=== PATIENT | female | born 1955 | race Caucasian/White ===

== ENCOUNTER 2016-08-21 06:05 | Observation (INO) | payer BC ==
[~2016-08-21] VITALS: Ht 165.1 cm; Wt 91.8 kg
[2016-08-21] MEDS ORDERED: MAGN250T3 PO (07:01)
[2016-08-21] MEDS ORDERED: ASPI81TA28 PO (07:01)
[2016-08-21] MEDS ORDERED: CHOL1000 PO (07:01)
[2016-08-21] MEDS ORDERED: ATOR-22 PO (07:01)
[2016-08-21] MEDS ORDERED: LISI-729 PO (07:01)
[2016-08-21] MEDS ORDERED: MULT-506 PO (07:01)
[2016-08-21 07:25] VITALS: BP 173/79; PULSE 52; TEMP 36.8; O2SAT 98
[2016-08-21 07:34] VITALS: BMI 32.0
[2016-08-21] MEDS ORDERED: MIDAZOLAM HCL 5 MG/ML 1 ML VIAL ONE ×2 (08:16→11:10)
[2016-08-21] MEDS ORDERED: DiphenhydrAMINE HCL 50 MG/ML VIAL ONE (08:19)
--- NOTE | 2016-08-21 08:21 | History & Physical Bridge Note ---
H&P Re-Evaluation Bridge Note: I have examined the patient, reviewed the History & Physical and in the interval since the performance of the History & Physical I have noted the following changes of clinical significance: No changes noted
--- NOTE | 2016-08-21 08:22 | Procedure Note ---
Pre-Mod Sedation Assessment General Date of Moderate Sedation: Aug 21, 2016. Vital Signs: Vital Signs Past 12 Hours Date Time Temp Pulse Resp B/P (MAP) Pulse Ox O2 Delivery O2 Flow Rate FiO2 08/21/16 07:25 36.8 52 16 173/79 98 Room Air Review Cardiovascular: regular rate, rhythm Abdomen: soft Lungs: lungs clear Airway Class: II Pre-Sedation Airway Assessment Oral Cavity: Capped Teeth Short Thick Neck: No Hx of Sleep Apnea: No Smoking Status: Never Smoker Mallampati Classification: Class II ASA Classification: Class II Procedure Planning Contraindications-for Mod Sed: None Yes Notes The planned sedation has been discussed with the patient and consent obtained. I have identified the patient, determined the appropriateness of sedation and have assessed the patient immediately prior to the procedure. All medicine(s) and interventions are by my order.
[2016-08-21] MEDS ORDERED: HEPARIN SOD (PORCINE) 1000 UNIT/ML 10 ML VIAL ONE (09:12)
[2016-08-21] MEDS ORDERED: HYDROmorphone INJ 1 MG/ML SYR ONE (09:13)
[2016-08-21] MEDS ORDERED: LIDOCAINE HCL 1% 20 ML VIAL ONE (09:33)
--- NOTE | 2016-08-21 11:41 | Procedure Note ---
Post-Mod Sedation Assessment General Date of Moderate Sedation Aug 21, 2016. Vital Signs: Vital Signs Past 12 Hours Date Time Temp Pulse Resp B/P (MAP) Pulse Ox O2 Delivery O2 Flow Rate FiO2 08/21/16 07:25 36.8 52 16 173/79 98 Room Air Review - Discharge Criteria Vital Signs Stable: Yes Alert/Oriented/Conversant: Yes Returned to Baseline Mental St: Yes Nausea Absent/Minimal: Yes Pain/Discomfort/Absent/Minimal: Yes Normal/Baseline Respirations: Yes Active Bleeding?: Yes Pt Received D/C Instructions: N/A Prescriptions Given: None Specific Proced. D/C Criteria Distal Pulses Present (Cardiac: Yes Groin site assessed-Card Cath: Yes Voided Prior To Discharge: N/A Discharged Patients Adult Escort/Transportation: N/A
--- NOTE | 2016-08-21 11:43 | Discharge Instructions ---
Discharge Instructions Date of Service Aug 21, 2016. Admission Reason for Admission: Atrial Flutter Discharge Discharge Diagnosis / Problem: ATRIAL FLUTTER Discharge Goals Goal(s): Improve function Activity Recommendations Activity Limitations: as noted below Lifting Limitations: no more than 10 pounds (DO NOT LIFT ANYTHING HEAVY OR SQUATING FOR 1 WEEK) Exercise/Sports Limitations: as tolerated May Resume Sexual Activity: after one week Shower/Bathe: tomorrow Driving or Machine Use: resume 1 day after discharge ACTIVITY RECOMMENDATIONS: It is common to feel weak and fatigue for a few days. * Do not drive or operate any motorized equipment for the next 1 day. * Limit stair usage (2 or 3 trips a day only) for the next three days. * Do not lift anything heavier than 10 pounds for the next 7 days. * Do not engage in vigorous exercise or any sports for the next five days. * You may shower the day after your procedure, but do not immerse the area for three days. Cleanse the site gently with soap and water. SPECIAL CARE INSTRUCTIONS: * You may replace the pressure dressing or band-aid the morning after the procedure. * After your procedure, it is normal to have a small bruise or small lump at the site. Examine your site daily for any change in the bruise or lump, redness, swelling, drainage or numbness. Notify your doctor if any change. BLEEDING: * If there is a small amount of bleeding at the site, lie down and apply firm pressure with a clean cloth for ten minutes. When the bleeding stops, lie quietly keeping the procedure limb straight for six hours. Notify your doctor as soon as possible. * If the bleeding does not stop after ten minutes or if there is a large amount of bleeding or spurting, call 911 immediately. Continue to lie down and hold firm pressure until help arrives. SKIN IRRITATION: * You may experience some redness and/or swelling in the area where radiation was administered. If any skin irritation occurs, please contact your family physician. FOLLOW UP VISIT: Keep any scheduled doctor appointments. . Instructions / Follow-Up Instructions / Follow-Up ACTIVITY RECOMMENDATIONS: It is common to feel weak and fatigue for a few days. * Do not drive or operate any motorized equipment for the next 1 day. * Limit stair usage (2 or 3 trips a day only) for the next three days. * Do not lift anything heavier than 10 pounds for the next three days. * Do not engage in vigorous exercise or any sports for the next five days. * You may shower the day after your procedure, but do not immerse the area for three days. Cleanse the site gently with soap and water. SPECIAL CARE INSTRUCTIONS: * You may replace the pressure dressing or band-aid the morning after the procedure. * After your procedure, it is normal to have a small bruise or small lump at the site. Examine your site daily for any change in the bruise or lump, redness, swelling, drainage or numbness. Notify your doctor if any change. BLEEDING: * If there is a small amount of bleeding at the site, lie down and apply firm pressure with a clean cloth for ten minutes. When the bleeding stops, lie quietly keeping the procedure limb straight for six hours. Notify your doctor as soon as possible. * If the bleeding does not stop after ten minutes or if there is a large amount of bleeding or spurting, call 911 immediately. Continue to lie down and hold firm pressure until help arrives. SKIN IRRITATION: * You may experience some redness and/or swelling in the area where radiation was administered. If any skin irritation occurs, please contact your family physician. FOLLOW UP VISIT: Keep any scheduled doctor appointments. Current Hospital Diet Patient's current hospital diet: Regular Diet Discharge Diet Recommended Diet: Regular Diet Procedures Procedures Performed: EPS AND ATRIAL FLUTTER ABLATION, 3D MAPPING OF RA Pending Studies Studies pending at discharge: no Medical Emergencies . Who to Call and When: Medical Emergencies: If at any time you feel your situation is an emergency, please call 911 immediately. . Non-Emergent Contact Non-Emergency issues call your: Short Order Fry Cook . . "Provider Documentation" section prepared by Gely Ibarra. . VTE Core Measure Inpt VTE Proph given/why not?: Treatment not indicated
[2016-08-21] MEDS ORDERED: ACETAMINOPHEN 325 MG TAB PO PRN (11:45)
--- NOTE | 2016-08-21 11:46 | Discharge Summary ---
Discharge Summary Date of Service Aug 21, 2016. Discharge Summary Admission Date: Discharge Date: Aug 22, 2016 Discharge Disposition: Home Principal Diagnosis: ATRIAL FLUTTER S/P ABLATION Secondary Diagnoses/Problems: HTN HLD H/O RETINAL HEMORRHAGES Procedures: EPS, ATRIAL FLUTTER ABLATION, 3D MAPPING OF RIGHT ATRIUM Medication Reconciliation Continued Medications: Aspirin (Aspirin Ec) 81 Mg Tab 81 MG PO DAILY Atorvastatin (Lipitor) 20 Mg Tab 20 MG PO DAILY, TAB Cholecalciferol (Vitamin D3) 1,000 Unit Tab 2 TAB PO DAILY for 90 Days, #180 TAB 3 Refills Lisinopril (Zestril) 5 Mg Tab 5 MG PO DAILY, TAB Magnesium (Magnesium 250 mg) 1 Tab Tab 1 TAB PO BID Multivitamin (Multivitamin) Tab 1 TAB PO DAILY, TAB Admission Information Physical Exam (per Admitting): aaox3, NAD Supple, No JVD Nrl S1/S2, no murmur CTA b/l No w/r/r soft nt/nd no edema b/l le pulses intact skin intact no focal deficits Hospital Course Pt was admitted for elective atrial flutter ablation; underwent an empiric atrial flutter ablation without any complications. Monitored overnight and discharged home in stable condition Total time spent on discharge = 30 minutes This includes examination of the patient, discharge planning, medication reconciliation, and communication with other providers. Discharge Instructions ACTIVITY RECOMMENDATIONS: It is common to feel weak and fatigue for a few days. * Do not drive or operate any motorized equipment for the next day. * Limit stair usage (2 or 3 trips a day only) for the next three days. * Do not lift anything heavier than 10 pounds for the next three days. * Do not engage in vigorous exercise or any sports for the next five days. * You may shower the day after your procedure, but do not immerse the area for three days. Cleanse the site gently with soap and water. SPECIAL CARE INSTRUCTIONS: * You may replace the pressure dressing or band-aid the morning after the procedure. * After your procedure, it is normal to have a small bruise or small lump at the site. Examine your site daily for any change in the bruise or lump, redness, swelling, drainage or numbness. Notify your doctor if any change. BLEEDING: * If there is a small amount of bleeding at the site, lie down and apply firm pressure with a clean cloth for ten minutes. When the bleeding stops, lie quietly keeping the procedure limb straight for six hours. Notify your doctor as soon as possible. * If the bleeding does not stop after ten minutes or if there is a large amount of bleeding or spurting, call 911 immediately. Continue to lie down and hold firm pressure until help arrives. SKIN IRRITATION: * You may experience some redness and/or swelling in the area where radiation was administered. If any skin irritation occurs, please contact your family physician. FOLLOW UP VISIT: Keep any scheduled doctor appointments.
--- NOTE | 2016-08-21 11:47 | [facility] Post Operative Brief Note ---
Immediate Operative Summary Operative Date Aug 21, 2016. Pre-Operative Diagnosis atrial flutter Post-Operative Diagnosis same, bidirectional block across CTI Procedure(s) Performed EPS AND ATRIAL FLUTTER ABLATION, 3D MAPPING OF RA Surgeon rowan garcia Business Travel Consultant Surgeon(s) none Estimated Blood Loss <5cc Findings see official report Fluids (cc crystalloids) 700cc Specimens none Drains none Anesthesia 5mg versed and 1mg dilaudid Complication(s) None Disposition PCU
--- NOTE | 2016-08-21 12:10 | [facility] Operative Report ---
Operative Report Operative Date Aug 21, 2016. Pre-Operative Diagnosis atrial flutter Post-Operative Diagnosis same, bidirectional block across CTI Procedure(s) Performed EPS AND ATRIAL FLUTTER ABLATION, 3D MAPPING OF RA Surgeon rowan ibarra Salesperson Recreational Vehicles Surgeon(s) none Estimated Blood Loss <5cc Findings Patient: ALPHONSE THOMPSON Admit Date: 06/13/1704/03/17 [facility] Rec: [id number] Acct ID: [id number] DATE OF OPERATION: 08/21/2016 PREOPERATIVE DIAGNOSIS: Paroxysmal atrial flutter. POSTOPERATIVE DIAGNOSIS: Same in addition to bidirectional block over the cavotricuspid isthmus. PROCEDURE: Electrophysiology study, 3D mapping of the His bundle, coronary sinus os, cavotricuspid isthmus and the IVC-RA junction along with 3d activation mapping of RA while c/s prox pacing to confirm block across the CTI, radiofrequency ablation of the cavotricuspid isthmus. SURGEON: Dr. Rowan Ibarra. CIVIL CLERK: None. ANESTHESIA: Monitored conscious sedation administered by Merry Way under my supervision; start time 08:22; end time 10:30; total of 5mg versed and 1mg dilaudid COMPLICATIONS: None. CONDITION: Stable. SPECIMENS: None. FINDINGS: See below DRAINS: None. BLOOD LOSS: Less than 5 mL URINE OUTPUT: Not applicable. FINDINGS: See below. INDICATIONS: This is a 61-year-old female with a past medical history for paroxysmal atrial flutter found on LINQ interrogations, HTN, HLD, h/o retinal hemorrhages so even though her [id number] is 2 (HTN and female) only on ASA. Given she continues to have symptomatic paroxysmal atrial flutter and unable to take anti-coagulation patient was recommend an atrial flutter ablation. CONSENT: Consent was obtained prior to the patient going into the electrophysiology lab. The patient was explained the risks, benefits and alternatives to the procedure. Risks include but not limited to sudden cardiac , cardiac arrhythmias, cerebrovascular accident, myocardial infarction, injury to the blood vessels, chamber of the heart, [place] electrical system where she would need a permanent pacemaker, bleeding, infection. The patient understood these risks and agreed to the procedure as planned. Informed consent was obtained. DESCRIPTION OF THE PROCEDURE: The patient was brought into the electrophysiology lab in a fasting state. She was connected to continuous cardiac technologist. A timeout was performed to ensure patient identity and procedure correctly. The patient was prepped and draped to bilateral groins in normal surgical standard fashion. Monitored conscious sedation was given throughout the case for the patient's comfort level under my supervision. Toney precautions were maintained throughout the procedure. 10 mL of 1% lidocaine were given in the bilateral groins for local anesthesia. Using the modified Seldinger technique, venous access was obtained in the following manner. The left femoral vein had a: 7-Pashto sheath, followed by a decapolar coronary sinus DF curve catheter positioned out into the coronary sinus. An 7-Pashto sheath, followed by a 20 pole Halo catheter positioned around the right atrium. An 7-Pashto sheath, followed by a Josphenson quadrapolar catheter initial positioned in the His bundle to record AH and HV then positioned in the RV apex. The right femoral vein initially had an 6-Pashto short sheath that was eventually swapped out for an SR0, followed then by a Ideagen ThermoCool 4 mm DF curve ablation catheter. An electrophysiology study was performed with the following findings: GA interval 180 milliseconds, QRS 96 milliseconds, QT 364 milliseconds, sinus cycle length 880 milliseconds, AH 81 milliseconds, HV 54 milliseconds, AV Wenckebach 370 milliseconds. The AVN ERP was 600/280 and 400/290. The Atrial ERP was 600/240 and 400/240. Measuring the distance before ablation across the cavotricuspid isthmus line with coronary sinus proximal pacing to the Halo distal was 68ms milliseconds. And pacing from Halo distal to c/s prox was 70ms. Since the patient was in sinus rhythm, we did an empiric ablation line over the cavotricuspid isthmus. With the ablation catheter, we initially 3D mapped the His bundle region- however this caused mechanical CHB briefly where we did RV pace for about a minute and then she returned to sinus bradycardia. We also 3D mapped with the ablation catheter the coronary sinus os and then then 3D mapping from the tricuspid valve down across the cavotricuspid isthmus to the RA-IVC junction. We then positioned the ablation catheter. Then, we positioned the ablation catheter along the cavotricuspid isthmus, starting at the tricuspid valve, and gave a series of radiofrequency ablations. On the carto map everytime we went on ablation our catheter appeared to drop-we believe this was due to the presense of the LINQ on the patient-the catheter did not move on fluoroscopy. We initial dragged the ablation catheter from TV to RA/IVC junction at [address] about 3 times. Then I went back with the ablation catheter and give a series of 30 second to 1 minute ablation babcock down across the line at [address]. In doing this the atrial signal along the line on the ablation catheter was either fractionated or split. When c/s prox pacing the distance to the distal Halo was longer then pre- ablation to 100ms as well as if we paced distal Halo and measured to C/S prox. I would have expected a longer distance but the patient's RA is small and the distal pole on Halo appears to be alittle more posterior for this reason and I suspect the signal when pacing from C/S prox is going quickly through the short posterior wall so timing is not as long as expected but the activation has changed with the ablation. To further confirm this we did 3D activation mapping with the ablation catheter of the RA activation while pacing from the C/ S proximal-this confirmed block across the cavo-tricuspid isthmus. During the post-ablation waiting period, we did another electrophysiology study with the following findings: GA interval 178 milliseconds, QRS 102 milliseconds, QT 376 milliseconds, sinus cycle length 860 milliseconds, the AH interval 126 milliseconds, HV 50 milliseconds, AV Wenckebach 370 milliseconds, AV node ERP was 600/360 and 500/360, the atrial ERP was 600/250 and the AVN ERP was less then or equal to the atrial ERP at a [address]. The AVN ERP was 400/220 and atrial ERP was 400/210. The right ventricular ERP was 600/250, 400/2200, with coronary sinus proximal pacing measuring to the lateral side of our line on the distal Halo, we had 100 milliseconds. When we paced from the distal Halo lateral to our line to the coronary sinus proximal, it was 102 milliseconds, confirming that there was still bidirectional block at a 30-minute wait period. It was at this juncture that the catheters were then pulled from the body and the sheaths were pulled using manual compression to restore hemostasis. The patient was extubated and was doing well. IMPRESSION: 1. Successful bidirectional block across the cavotricuspid isthmus after radiofrequency cavotricuspid isthmus empiric ablation. 2. Normal atrioventricular nina function. 3. Briefly transient mechanical CHB while positioning the catheter. PLAN: Monitor patient post-ablation overnight. EKG. No heavy lifting or squatting for 1 week's time and she will follow up in my [place] office in 1 month. Fluids 700cc Specimens none Drains none Anesthesia 5mg versed and 1mg dilaudid Disposition PCU I attest to the content of the Intraoperative Record and any orders documented therein. Any exceptions are noted below.
[2016-08-21] MEDS ORDERED: IV FLUIDS COMPLETED PRN (13:45)
[2016-08-21 13:48] VITALS: BP 145/73; PULSE 63; TEMP 36.7; Ht 165.1 cm; Wt 91.8 kg
[2016-08-21 15:11] VITALS: BP 149/74; PULSE 91; TEMP 36.5; O2SAT 98
[2016-08-21 16:00] VITALS: O2SAT 98
[2016-08-21 18:44] VITALS: BP 135/75; PULSE 81; TEMP 37.1; O2SAT 98
[2016-08-21] MEDS: MAGNESIUM 250 MG PO SCH (20:16)
[2016-08-22 00:08] VITALS: BP 147/80; PULSE 63; TEMP 36.9; O2SAT 98
[2016-08-22 04:22] VITALS: BP 132/76; PULSE 79; TEMP 36.7; O2SAT 93
[2016-08-22 07:36] VITALS: BP 125/81; PULSE 92; TEMP 36.9; O2SAT 95
[2016-08-22] MEDS: MAGNESIUM 250 MG PO SCH (07:37)
--- NOTE | 2016-08-22 08:30 | Cardiology Follow-Up ---
Subjective Subjective Date of Service: Aug 22, 2016. Pt evaluation today including: conversation w/ patient, conversation w/ family , physical exam Pain: none Review of Systems Constitutional: No fever, No fatigue Respiratory: No cough, No shortness of breath Cardiac: No chest pain, No edema, No palpitations Abdomen: No nausea, No vomiting Objective Vital Signs Last Vital Signs Documentation Date Time Temp Pulse Resp B/P (MAP) Pulse Ox O2 Delivery O2 Flow Rate FiO2 08/22/16 07:36 36.9 92 18 125/81 (96) 95 Room Air Physical Exam: General Appearance: WD/WN, no apparent distress Eyes: bilateral eyes PERRL, bilateral eyes EOMI ENT: normal ENT inspection Neck: supple, no JVD Respiratory/Chest: lungs clear, normal breath sounds Cardiovascular: regular rate, rhythm, no edema, no JVD, no murmur Abdomen: soft (b/l groins no hematoma no ecchymosis) Extremities: no pedal edema Neurologic/Psychiatric: oriented x 3 Skin: normal color, warm/dry Assessment and Plan Impression: 1. Paroxysmal atrial flutter, s/p emperic CTI ablation 08/21/2016 2. HTN 3. HLD 4. h/o Retinal hemorrhages only on ASA no NOAC or coumadin [id number] 2 (HTN and female) Plan: -Ok for discharge home today -Continue current home medications -No heavy lifting or squatting for 1 week -F/u in [place] in 1 month -Continue with LINQ checks as scheduled Discharge planning: home Medications: Medications Administered Medications (Trade) Dose Ordered Sig/[place] Route Start Time Stop Time Status Last Admin Dose Admin Midazolam HCl (Versed Inj) 5 mg STK-MED ONCE .ROUTE 08/21/16 08:16 08/21/16 08:17 DC 08/21/16 08:16 5 MG Diphenhydramine HCl (Benadryl Inj) 50 mg STK-MED ONCE .ROUTE 08/21/16 08:19 08/21/16 08:20 DC 08/21/16 08:19 25 MG Hydromorphone HCl (Dilaudid Inj) 2 mg STK-MED ONCE .ROUTE 08/21/16 09:13 08/21/16 09:14 DC 08/21/16 09:13 1 MG Aspirin (Ecotrin Tab) 81 mg DAILY PO 08/22/16 09:00 09/21/16 08:59 08/22/16 07:36 81 MG Atorvastatin Calcium (Lipitor Tab) 20 mg DAILY PO 08/22/16 09:00 09/21/16 08:59 08/22/16 07:36 20 MG Lisinopril (Zestril Tab) 5 mg DAILY PO 08/22/16 09:00 09/21/16 08:59 08/22/16 07:37 5 MG Multivitamins (Multivitamin Tab) 1 tab DAILY PO 08/22/16 09:00 09/21/16 08:59 08/22/16 07:37 1 TAB Non-Formulary Medication (Non-Formulary Patient'S Own Med) 1 ea BID PO 08/21/16 21:00 09/20/16 20:59 08/22/16 07:37 1 EA Lab Results: ECG 08/21/2016 post ablation: SR normal intervals Telemetry:SR/SB rare PVCs
[2016-08-22] MEDS ORDERED: MULTIVITAMIN TAB PO SCH (09:00)
[2016-08-22] MEDS ORDERED: ASPIRIN 81 MG ECTAB PO SCH (09:00)
[2016-08-22] MEDS ORDERED: ATORVASTATIN 20 MG TAB PO SCH (09:00)
[2016-08-22] MEDS ORDERED: LISINOPRIL 5 MG TAB PO SCH (09:00)
[2016-08-22 09:21] VITALS: BP 125/81; PULSE 92; TEMP 36.9; O2SAT 95
== END 2016-08-22 09:38 | disposition home or self-care (01) ==
LOC: C.EP 06:05 → C.2T 11:41 → ENRESERV 12:41
PROVIDERS: ADMIT Internal Medicine; ATTEND Internal Medicine
DX: I48.0 Paroxysmal atrial fibrillation (principal); E78.5 Hyperlipidemia, unspecified; I10 Essential (primary) hypertension; Z79.01 Long term (current) use of anticoagulants; Z79.899 Other long term (current) drug therapy; Z82.49 Family history of ischemic heart disease and other diseases of the circulatory system; Z83.6 Family history of other diseases of the respiratory system; Z82.3 Family history of stroke